=== PATIENT | male | born 2000 | race Caucasian/White ===

== ENCOUNTER → 2022-12-19 | Outpatient (CLI) | payer OTHER ==
[~2022-12-19] MED LIST: ISOVUE-300 61% 100ML VIAL ONE; LIDOCAINE 1% MDV 20ML VIAL ONE; PROHANCE 279.3MG/ML 15ML VIAL ONE
== END ==
LOC: M PLAIMG 13:52
PROVIDERS: ATTEND Student in an Organized Health Care Education/Training Program
DX: M25.512 Pain in left shoulder (principal)
CPT/HCPCS: 23350; 73223; 76000; A9576; Q9967

== ENCOUNTER 2023-11-17 05:51 | Emergency (ER) | payer OTHER ==
[~2023-11-17] VITALS: Ht 182.9 cm; Wt 108.3 kg
[2023-11-17 07:06] LABS: HEMATOCRIT 40.2 % (42.0-52.0); HEMOGLOBIN 14.1 g/dl (13.5-17.5); MEAN CORPUSCULAR HEMOGLOBIN 29.5 pg (27.0-33.0); MEAN CORPUSCULAR HGB CONC 35.1 g/dl (32.0-36.5); MEAN CORPUSCULAR VOLUME 84.1 fl (80.0-96.0); PLATELET COUNT, AUTOMATED 189 10^3/uL (150-450); RED BLOOD COUNT 4.78 10^6/uL (4.30-6.10); WHITE BLOOD COUNT 5.1 10^3/uL (4.0-10.0)
[2023-11-17 07:16] LABS: ERYTHROCYTE SEDIMENTATION RATE 20 mm/hr (0-15)
[2023-11-17 07:40] LABS: ALBUMIN 3.6 G/DL (3.2-5.2); ALKALINE PHOSPHATASE 45 U/L (46-116); ALT/SGPT 20 U/L (7.0-40); AST/SGOT 10 U/L (<34); BILIRUBIN,TOTAL 0.4 MG/DL (0.3-1.2); BLOOD UREA NITROGEN 15 MG/DL (9-23); CALCIUM LEVEL 8.9 MG/DL (8.5-10.1); CARBON DIOXIDE LEVEL 26 MMOL/L (20-31); CHLORIDE LEVEL 105 MMOL/L (98-107); CREATININE FOR GFR 0.72 MG/DL (0.70-1.30); GLOMERULAR FILTRATION RATE > 60.0 (>60); GLUCOSE, FASTING 105 MG/DL (60-100); POTASSIUM SERUM 3.7 MMOL/L (3.5-5.1); SODIUM LEVEL 140 MMOL/L (136-145); TOTAL PROTEIN 6.6 G/DL (5.7-8.2)
[2023-11-17 07:42] LABS: ATYPICAL LYMPH 6 % (0-5); LYMPHOCYTES 25 % (16-44); MONOCYTES 6 % (0-5); NEUTROPHILS 62 % (28-66); PLASMA CELL 1 % (0-0)
[2023-11-17 07:45] LABS: PLATELET ESTIMATE NORMAL (NORMAL)
[2023-11-17] MEDS ORDERED: MAGICMW SSP (08:14)
[2023-11-17] MEDS ORDERED: VALT1TAB PO (08:14)
[2023-11-17 08:19] VITALS: BP 125/71; TEMP 96.5; O2SAT 97
== END 2023-11-17 08:35 | disposition home or self-care (01) ==
LOC: M ED 05:51
DX: B08.5 Enteroviral vesicular pharyngitis (principal); Z79.2 Long term (current) use of antibiotics

== ENCOUNTER → 2024-02-24 | Outpatient (REF) ==
[~2024-02-24] MED LIST changes: -ISOVUE-300 61% 100ML VIAL ONE; -LIDOCAINE 1% MDV 20ML VIAL ONE; +MAGICMW SSP; -PROHANCE 279.3MG/ML 15ML VIAL ONE; +VALT1TAB PO
== END ==
LOC: M PLAIMG 10:49
PROVIDERS: ATTEND Nurse Practitioner Family
DX: Z00.00 Encounter for general adult medical examination without abnormal findings (principal)